=== PATIENT | female | born 1990 | race Caucasian/White ===

== ENCOUNTER 2018-01-18 13:20 | Outpatient (CLI) | payer MEDICAID ==
[~2018-01-18] VITALS: Ht 172.7 cm; Wt 70.8 kg
[~2018-01-18 13:20] MED LIST: ACHYD1T PO; IBP800T PO; PREN1TAB39 PO
[2018-01-18 14:14] VITALS: BP 108/56
[2018-01-18] MEDS ORDERED: D5 LR IV SOLUTION 1,000 ML IV SCH ×2 (14:15→16:15)
[2018-01-18] MEDS ORDERED: ONDANSETRON 4 MG/2 ML (SDV) Z0FRAN IVP ONE (14:15)
[2018-01-18 14:31] LABS: BASOPHILS % (AUTO) 0 % (0-10); EOSINOPHILS # (AUTO) 0.4 10^3/uL (0.0-0.3); EOSINOPHILS % (AUTO) 4 % (0-10); HEMATOCRIT 31 % (35-52); HEMOGLOBIN 10.9 G/DL (11.5-16.0); LYMPHOCYTES # (AUTO) 1.8 X 10^3 (1.0-4.0); LYMPHOCYTES % (AUTO) 16 % (12-44); MEAN CORPUSCULAR HEMOGLOBIN 33 PG (25-34); MEAN CORPUSCULAR HGB CONC 35 G/DL (32-36); MEAN CORPUSCULAR VOLUME 93 FL (80-99); MEAN PLATELET VOLUME 10.2 FL (7.4-10.4); MONOCYTES # (AUTO) 1.1 X 10^3 (0.0-1.0); MONOCYTES % (AUTO) 10 % (0-12); NEUTROPHILS # (AUTO) 8.4 X 10^3 (1.8-7.8); NEUTROPHILS % (AUTO) 71 % (42-75); PLATELET COUNT 225 10^3/uL (130-400); RED BLOOD COUNT 3.34 10^6/uL (4.35-5.85); RED CELL DISTRIBUTION WIDTH 12.2 % (10.0-14.5); WHITE BLOOD COUNT 11.8 10^3/uL (4.3-11.0)
[2018-01-18 14:53] LABS: ALANINE AMINOTRANSFERASE 6 U/L (0-55); ALBUMIN 3.5 GM/DL (3.2-4.5); ALKALINE PHOSPHATASE 68 U/L (40-136); BILIRUBIN,TOTAL 0.4 MG/DL (0.1-1.0); BUN/CREATININE RATIO 13; CALCIUM 8.9 MG/DL (8.5-10.1); CARBON DIOXIDE 20 MMOL/L (21-32); CHLORIDE 109 MMOL/L (98-107); CREATININE SERUM 0.64 MG/DL (0.60-1.30); GFR ESTIMATED > 60; GLUCOSE 81 MG/DL (70-105); POTASSIUM 3.8 MMOL/L (3.6-5.0); SODIUM 137 MMOL/L (135-145); TOTAL PROTEIN 6.3 GM/DL (6.4-8.2)
[2018-01-18 16:06] LABS: BILIRUBIN,URINE NEGATIVE (NEGATIVE); CLARITY,URINE CLEAR; COLOR,URINE YELLOW; GLUCOSE, URINE (UA) NEGATIVE (NEGATIVE); KETONES,URINE NEGATIVE (NEGATIVE); LEUKOCYTE ESTERASE ,URINE 1+ (NEGATIVE); NITRITE,URINE NEGATIVE (NEGATIVE); PH,URINE 6 (5-9); PROTEIN,URINE 2+ (NEGATIVE); UROBILINOGEN,URINE 1 MG/DL (NORMAL)
[2018-01-18 16:34] LABS: BACTERIA,URINE 0-2 /HPF
[2018-01-18] MEDS ORDERED: PREN-37 PO (18:19)
--- NOTE | 2018-01-19 15:43 | Physician Query-Final Dx ---
GIANA ORELLANA 01/19/18 1543: Clinic Account Progress/Dx Physician Query: Please give diagnosis Date of Service Jan 18, 2018 at 13:20 JAY PERES MD 01/20/18 0707: Clinic Account Progress/Dx DIAGNOSIS: Diagnosis false labor GIANA ORELLANA Jan 19, 2018 15:43 JAY PERES MD Jan 20, 2018 07:07
== END 2018-01-18 18:30 | disposition home or self-care (01) ==
LOC: WSo 13:20 → LDRP 13:20 → WSo 18:30
PROVIDERS: ATTEND Obstetrics & Gynecology
DX: O47.9 False labor, unspecified (principal)
CPT/HCPCS: 36415; 80053; 81000; 82570; 84156; 85025; 96360; 96361; 99213

== ENCOUNTER 2018-03-07 10:15 | Outpatient (CLI) | payer MEDICAID ==
[~2018-03-07] VITALS: Ht 172.7 cm; Wt 76.2 kg
[2018-03-07] VITALS (13 sets, daily range): BP systolic 101–142; BP diastolic 55–86
[~2018-03-07 10:15] MED LIST changes: +PREN-37 PO
[2018-03-07 10:55] LABS: BILIRUBIN,URINE NEGATIVE (NEGATIVE); CLARITY,URINE CLEAR; COLOR,URINE YELLOW; GLUCOSE, URINE (UA) NEGATIVE (NEGATIVE); KETONES,URINE NEGATIVE (NEGATIVE); LEUKOCYTE ESTERASE ,URINE 3+ (NEGATIVE); NITRITE,URINE NEGATIVE (NEGATIVE); PH,URINE 7 (5-9); PROTEIN,URINE 2+ (NEGATIVE); UROBILINOGEN,URINE NORMAL (NORMAL)
[2018-03-07 11:05] LABS: BACTERIA,URINE TRACE /HPF
[2018-03-07 11:51] LABS: BILIRUBIN,URINE NEGATIVE (NEGATIVE); CLARITY,URINE CLEAR; COLOR,URINE YELLOW; GLUCOSE, URINE (UA) NEGATIVE (NEGATIVE); KETONES,URINE NEGATIVE (NEGATIVE); LEUKOCYTE ESTERASE ,URINE NEGATIVE (NEGATIVE); NITRITE,URINE NEGATIVE (NEGATIVE); PH,URINE 7 (5-9); PROTEIN,URINE 1+ (NEGATIVE); UROBILINOGEN,URINE NORMAL (NORMAL)
[2018-03-07 12:02] LABS: BACTERIA,URINE NEGATIVE /HPF
[2018-03-07 13:39] LABS: BASOPHILS % (AUTO) 0 % (0-10); EOSINOPHILS # (AUTO) 0.1 10^3/uL (0.0-0.3); EOSINOPHILS % (AUTO) 1 % (0-10); HEMATOCRIT 31 % (35-52); HEMOGLOBIN 10.4 G/DL (11.5-16.0); LYMPHOCYTES # (AUTO) 1.8 X 10^3 (1.0-4.0); LYMPHOCYTES % (AUTO) 17 % (12-44); MEAN CORPUSCULAR HEMOGLOBIN 32 PG (25-34); MEAN CORPUSCULAR HGB CONC 34 G/DL (32-36); MEAN CORPUSCULAR VOLUME 94 FL (80-99); MEAN PLATELET VOLUME 10.2 FL (7.4-10.4); MONOCYTES % (AUTO) 9 % (0-12); NEUTROPHILS # (AUTO) 7.8 X 10^3 (1.8-7.8); NEUTROPHILS % (AUTO) 73 % (42-75); PLATELET COUNT 227 10^3/uL (130-400); RED BLOOD COUNT 3.29 10^6/uL (4.35-5.85); WHITE BLOOD COUNT 10.8 10^3/uL (4.3-11.0)
[2018-03-07 14:06] LABS: ALANINE AMINOTRANSFERASE 6 U/L (0-55); ALBUMIN 3.3 GM/DL (3.2-4.5); ALKALINE PHOSPHATASE 105 U/L (40-136); BILIRUBIN,TOTAL 0.4 MG/DL (0.1-1.0); BUN/CREATININE RATIO 8; CALCIUM 8.3 MG/DL (8.5-10.1); CARBON DIOXIDE 20 MMOL/L (21-32); CHLORIDE 110 MMOL/L (98-107); GFR ESTIMATED > 60; GLUCOSE 68 MG/DL (70-105); POTASSIUM 3.8 MMOL/L (3.6-5.0); SODIUM 136 MMOL/L (135-145); TOTAL PROTEIN 5.9 GM/DL (6.4-8.2); URIC ACID 4.8 MG/DL (2.6-7.2)
--- NOTE | 2018-03-09 13:59 | Physician Query-Final Dx ---
GIANA ORELLANA 03/09/18 1359: Clinic Account Progress/Dx Physician Query: Please give a diagnosis and the weeks of gestation thanks Date of Service Mar 07, 2018 at 10:15 ELIZABETH EDOUARD DO 03/23/18 1726: Clinic Account Progress/Dx DIAGNOSIS: Diagnosis complaint of rupture of membranes GIANA ORELLANA Mar 09, 2018 13:59 ELIZABETH EDOUARD DO Mar 23, 2018 17:26
== END 2018-03-07 15:40 | disposition home or self-care (01) ==
LOC: LDRP 10:15 → WSo 10:15
PROVIDERS: ATTEND Obstetrics & Gynecology
DX: O42.90 Premature rupture of membranes, unspecified as to length of time between rupture and onset of labor, unspecified weeks of gestation (principal)
CPT/HCPCS: 36415; 80053; 81000; 82570; 83615; 84156; 84550; 85025; 87088; 99214

== ENCOUNTER 2018-03-09 11:21 | Outpatient (CLI) | payer MEDICAID ==
[~2018-03-09] VITALS: Ht 172.7 cm; Wt 76.2 kg
[2018-03-09 13:25] LABS: BILIRUBIN,URINE NEGATIVE (NEGATIVE); CLARITY,URINE CLEAR; COLOR,URINE YELLOW; GLUCOSE, URINE (UA) NEGATIVE (NEGATIVE); KETONES,URINE NEGATIVE (NEGATIVE); LEUKOCYTE ESTERASE ,URINE 3+ (NEGATIVE); NITRITE,URINE NEGATIVE (NEGATIVE); PH,URINE 6.5 (5-9); PROTEIN,URINE 2+ (NEGATIVE); UROBILINOGEN,URINE 1 MG/DL (NORMAL)
[2018-03-09 13:39] LABS: BACTERIA,URINE MODERATE /HPF; YEAST,URINE FEW /HPF
--- NOTE | 2018-03-11 08:59 | Physician Query-Final Dx ---
GIANA ORELLANA 03/11/18 0859: Clinic Account Progress/Dx Physician Query: Please give diagnosis and include the weeks of gestation thank you Date of Service Mar 09, 2018 at 11:21 GRISEL HERRERA DO 03/14/18 0911: Clinic Account Progress/Dx DIAGNOSIS: Diagnosis 37 week IUP Uterine contractions GIANA ORELLANA Mar 11, 2018 08:59 GRISEL HERRERA DO Mar 14, 2018 09:11
== END 2018-03-09 15:05 | disposition home or self-care (01) ==
LOC: LDRP 11:21 → WSo 11:21
PROVIDERS: ATTEND Obstetrics & Gynecology
DX: O47.1 False labor at or after 37 completed weeks of gestation (principal); Z3A.37 37 weeks gestation of pregnancy
CPT/HCPCS: 81000; 87088; 99214

== ENCOUNTER 2018-03-16 12:20 | Inpatient (IN) | payer MEDICAID ==
[2018-03-16] VITALS (50 sets, daily range): BP systolic 106–185; BP diastolic 56–86
[~2018-03-16] VITALS: Ht 172.7 cm; Wt 74.8 kg
[2018-03-16] MEDS ORDERED: MINERAL OIL CONCENTRATE 99.9% 15 ML UDC TOP PRN (13:00)
[2018-03-16] MEDS: D5 LR IV SOLUTION 1,000 ML IV SCH ×2 (13:13→19:00)
[2018-03-16 13:43] LABS: BASOPHILS % (AUTO) 0 % (0-10); EOSINOPHILS # (AUTO) 0.2 10^3/uL (0.0-0.3); EOSINOPHILS % (AUTO) 2 % (0-10); HEMATOCRIT 34 % (35-52); HEMOGLOBIN 11.4 G/DL (11.5-16.0); LYMPHOCYTES # (AUTO) 2.1 X 10^3 (1.0-4.0); LYMPHOCYTES % (AUTO) 20 % (12-44); MEAN CORPUSCULAR HEMOGLOBIN 31 PG (25-34); MEAN CORPUSCULAR HGB CONC 34 G/DL (32-36); MEAN CORPUSCULAR VOLUME 93 FL (80-99); MEAN PLATELET VOLUME 11.2 FL (7.4-10.4); MONOCYTES # (AUTO) 1.1 X 10^3 (0.0-1.0); MONOCYTES % (AUTO) 11 % (0-12); NEUTROPHILS # (AUTO) 7.3 X 10^3 (1.8-7.8); NEUTROPHILS % (AUTO) 68 % (42-75); PLATELET COUNT 256 10^3/uL (130-400); RED BLOOD COUNT 3.63 10^6/uL (4.35-5.85); RED CELL DISTRIBUTION WIDTH 12.8 % (10.0-14.5); WHITE BLOOD COUNT 10.8 10^3/uL (4.3-11.0)
[2018-03-16] MEDS ORDERED: CATHETER FLUSH 10 ML SYR IV SCH (14:00)
[2018-03-16] MEDS ORDERED: SUFENTA 0.6MCG/ML BUPIVA 0.125 100 ML ONE (14:18)
[2018-03-16] MEDS ORDERED: BUPIVACAINE 0.25% 30 ML (SENSORCAINE) VIAL ONE (14:31)
[2018-03-16] MEDS ORDERED: fentaNYL INJECTION 100 MCG/2 ML AMP ONE (14:32)
[2018-03-16] MEDS ORDERED: D5 LR IV SOLUTION 1,000 ML IV SCH (15:03)
[2018-03-16] MEDS ORDERED: OXYTOCIN/NORMAL SALINE 500 ML IV SCH ×2 (15:03)
[2018-03-16] MEDS ORDERED: LACTATED RINGERS 1,000 ML IV ONE ×2 (15:06)
--- NOTE | 2018-03-16 15:09 | History & Physical ---
History and Physical Date Seen by Provider: Mar 16, 2018 Time Seen by Provider: 15:06 This patient is a 27-year-old white female with an EDC of 9 1418 putting her at 38-5/7 weeks gestation. She presented with complaint of regular painful contractions. She complains of persistent ongoing contractions for over week and a half. Determined that she has had a prolonged latent labor. She has changed her cervix now 3-1/2 cm where she was 3 cm yesterday. It does appear that she is entering active labor. She denies rupture membranes or bleeding. She had GBS culture after 35 weeks gestation was negative. Allergies are to sulfa which causes nausea and vomiting Medications are vitamins and Zantac Past medical surgical and obstetric histories are per the antepartum record HEENT exam is normal Neck is supple no lymphadenopathy no thyromegaly Abdomen is gravid soft nontender nondistended Extreme show clubbing cyanosis. There is no Homans sign. Pelvic exam per the nurse shows a cervix 3/2 gently dilated 70-80 percent effaced and 0-1 station vertex presentation with intact bag Laboratory Tests 03/16/18 13:10 Assessment and plan 38-5/7 weeks' gestation in early labor with a prolonged latent labor. Patient is admitted now for labor management. Epidural was allowed we will perform amniotomy to augment her labor. She does progress adequately and we will add Pitocin. We expect a vaginal delivery. 38-5/7 weeks' gestation in labor Allergies and Home Medications Allergies Coded Allergies: No Known Drug Allergies (Unverified , 12/21/11) Home Medications Vit/Iron Fumarate/FA 1 Each Tablet, 1 EACH PO DAILY, (Reported) Patient Home Medication List Home Medication List Reviewed: Yes JAY PERES MD Mar 16, 2018 3:09 pm
[2018-03-16] MEDS ORDERED: IBUP-1780 PO (15:11)
[2018-03-16] MEDS ORDERED: DOCU100C37 PO (15:11)
[2018-03-16] MEDS ORDERED: OXYC-471 PO (15:11)
--- NOTE | 2018-03-16 15:11 | Discharge Instructions ---
Discharge Instructions Discharge Medications New, Converted or Re-Newed RX: RX on Chart Patient Instructions Patient Instructions: As directed Return to The Hospital For: As directed Activity & Diet Discharge Diet: No Restrictions Activity as Tolerated: No Orders-Post D/C & Referrals Follow Up Appt: Call to make follow up appt. for patient in 4 weeks. Activity Per routine post vaginal delivery instructions. Diet as tolerated Patient may shower or tub bathe as desired. JAY PERES MD Mar 16, 2018 3:11 pm
[2018-03-16] MEDS ORDERED: ONDANSETRON 4 MG/2 ML (SDV) Z0FRAN IVP PRN (15:15)
[2018-03-16] MEDS ORDERED: KETOROLAC 30 MG/ML VIAL IV SCH (15:15)
[2018-03-16] MEDS ORDERED: MEASLES,MUMPS,RUBELLA 1 EA INJ SC ONE (15:15)
[2018-03-16] MEDS ORDERED: ONDANSETRON 4 MG/2 ML (SDV) Z0FRAN IV PRN (15:15)
[2018-03-16] MEDS ORDERED: BENZOCAINE/MENTHOL (DERMOPLAST) 56 ML CAN TP PRN (15:15)
[2018-03-16] MEDS ORDERED: TETANUS,DIPTH,PERTUSS P/F (BOOSTRIX) 0.5 ML VIAL IM ONE (15:15)
[2018-03-16] MEDS ORDERED: EPIDURAL (SUFENTA 0.6MCG/ML BUPIVA 0.125%) 100 ML BAG EPI PRN (15:15)
[2018-03-16] MEDS ORDERED: oxyCODONE/APAP 5/325MG (PERCOCET 5) TABLET PO PRN (15:15)
[2018-03-16] MEDS ORDERED: NALOXONE 0.4 MG/ML 1 ML (NARCAN) VIAL IV PRN (15:15)
--- OUTSIDE RECORDS SUMMARY | 2018-03-16 15:21 | XMS REPORT ---
Author Author MARLENE MCNAIR Organization [employer] Address Unknown Phone Unavailable Care Team Providers Care Veterinary Meat Inspector Name Role Phone MARLENE MCNAIR CP Unavailable Allergies, Adverse Reactions, Alerts Substance Reaction Event Type Sulfamethoxazole-Trimethoprim vomiting Drug Allergy Problems Problem Type Condition Code Onset Dates Condition Status Assessment Pharyngitis J02.9 Active Medications Medication Code System Code Instructions Start Date End Date Status Dosage Keflex [facility] [address]-22 500 MG Orally 3 times a day Apr 24, 2015 May 01, 2015 1 capsule Depo-Provera [facility] [address]-29 150 MG/ML Intramuscular 1 ml PredniSONE [facility] [address]-80 10 MG Orally Twice a day Apr 24, 2015Apr 1 tablet with food or milk Zoloft [facility] [address]-67 50 MG Orally Once a day 1 tablet Sudafed 12 Hour [facility] [address]-46 120 MG Orally every 12 hrs 1 tablet as needed Procedures Procedure Coding System Code Date Office Visit, New Pt., Level 2 CPT-4 73501 Apr 24, 2015 Vital Signs Date/Time: Apr 24, 2015 Temperature 99.5 F Weight 121.8 lbs Height 67 in BMI 19.07 Index Blood Pressure Diastolic 76 mmHg Blood Pressure Systolic 122 mmHg Cardiac Monitoring Heart Rate 84 bpm Results No Known Results Summary Purpose [employer] Submission
--- OUTSIDE RECORDS SUMMARY | 2018-03-16 15:21 | XMS REPORT ---
Author Author MARLENE MCNAIR Organization [facility] Address [address] [place] [address] Care Team Providers Care Meat Carrier Name Role Phone MARLENE MCNAIR Unavailable PROBLEMS Unknown Problems ALLERGIES No Information ENCOUNTERS Encounter Location Date Diagnosis [facility] [id number], [place] [address] 16 Apr, 2017 [facility] [address] [id number], [place] [address] 13 Apr, 2017 Sore throat J02.9 and Pharyngitis, unspecified etiology J02.9 [facility] [address] [id number], [place] [address] 14 Apr, 2015 Pharyngitis J02.9 IMMUNIZATIONS No Known Immunizations SOCIAL HISTORY Never Assessed REASON FOR VISIT triage - CBowmanRN PLAN OF CARE VITAL SIGNS MEDICATIONS Unknown Medications RESULTS No Results PROCEDURES No Known procedures INSTRUCTIONS MEDICATIONS ADMINISTERED No Known Medications MEDICAL (GENERAL) HISTORY Type Description Date Medical History Anxiety Medical History Depression Medical History Seasonal allergies Surgical History [place] teeth extraction Surgical History dilatation and curettage
--- OUTSIDE RECORDS SUMMARY | 2018-03-16 15:21 | XMS REPORT | Continuity of Care Document ---
Author Author Formerly [facility] Address Unknown Phone Unavailable Allergies Active Description Code Type Severity Reaction Onset Reported/Identified Relationship to Patient Clinical Status Yes No Known Drug Allergies [id number] Drug Allergy Unknown N/A 12/21/2011 Medications There is no data. Problems Date Dx Coded Attending Type Code Diagnosis Diagnosed By 01/18/2018 LARISA WILEY, JAY Velázquez Ot O47.9 FALSE LABOR, UNSPECIFIED Procedures There is no data. Results Test Result Range Complete blood count (CBC) with automated white blood cell (WBC) differential - 01/18/18 14:25 Blood leukocytes automated count (number/volume) 11.8 10*3/uL 4.3-11.0 Blood erythrocytes automated count (number/volume) 3.34 10*6/uL 4.35-5.85 Venous blood hemoglobin measurement (mass/volume) 10.9 g/dL 11.5-16.0 Blood hematocrit (volume fraction) 31 % 35-52 Automated erythrocyte mean corpuscular volume 93 [foz_us] 80-99 Automated erythrocyte mean corpuscular hemoglobin (mass per erythrocyte) 33 pg 25-34 Automated erythrocyte mean corpuscular hemoglobin concentration measurement ( mass/volume) 35 g/dL 32-36 Automated erythrocyte distribution width ratio 12.2 % 10.0-14.5 Automated blood platelet count (count/volume) 225 10*3/uL 130-400 Automated blood platelet mean volume measurement 10.2 [foz_us] 7.4-10.4 Automated blood neutrophils/100 leukocytes 71 % 42-75 Automated blood lymphocytes/100 leukocytes 16 % 12-44 Blood monocytes/100 leukocytes 10 % 0-12 Automated blood eosinophils/100 leukocytes 4 % 0-10 Automated blood basophils/100 leukocytes 0 % 0-10 Blood neutrophils automated count (number/volume) 8.4 10*3 1.8-7.8 Blood lymphocytes automated count (number/volume) 1.8 10*3 1.0-4.0 Blood monocytes automated count (number/volume) 1.1 10*3 0.0-1.0 Automated eosinophil count 0.4 10*3/uL 0.0-0.3 Automated blood basophil count (count/volume) 0.0 10*3/uL 0.0-0.1 Comprehensive metabolic panel - 01/18/18 14:25 Serum or plasma sodium measurement (moles/volume) 137 mmol/L 135-145 Serum or plasma potassium measurement (moles/volume) 3.8 mmol/L 3.6-5.0 Serum or plasma chloride measurement (moles/volume) 109 mmol/L 98-107 Carbon dioxide 20 mmol/L 21-32 Serum or plasma anion gap determination (moles/volume) 8 mmol/L 5-14 Serum or plasma urea nitrogen measurement (mass/volume) 8 mg/dL 7-18 Serum or plasma creatinine measurement (mass/volume) 0.64 mg/dL 0.60-1.30 Serum or plasma urea nitrogen/creatinine mass ratio 13 NRG Serum or plasma creatinine measurement with calculation of estimated glomerular filtration rate > NRG Serum or plasma glucose measurement (mass/volume) 81 mg/dL 70-105 Serum or plasma calcium measurement (mass/volume) 8.9 mg/dL 8.5-10.1 Serum or plasma total bilirubin measurement (mass/volume) 0.4 mg/dL 0.1-1.0 Serum or plasma alkaline phosphatase measurement (enzymatic activity/volume) 68 U/L 40-136 Serum or plasma aspartate aminotransferase measurement (enzymatic activity/ volume) 12 U/L 5-34 Serum or plasma alanine aminotransferase measurement (enzymatic activity/volume ) 6 U/L 0-55 Serum or plasma protein measurement (mass/volume) 6.3 g/dL 6.4-8.2 Serum or plasma albumin measurement (mass/volume) 3.5 g/dL 3.2-4.5 Complete urinalysis with reflex to culture - 01/18/18 14:25 Urine color determination YELLOW NRG Urine clarity determination CLEAR NRG Urine pH measurement by test strip 6 5-9 Specific gravity of urine by test strip 1.020 1.016- 1.022 Urine protein assay by test strip, semi-quantitative 2+ NEGATIVE Urine glucose detection by automated test strip NEGATIVE NEGATIVE Erythrocytes detection in urine sediment by light microscopy NEGATIVE NEGATIVE Urine ketones detection by automated test strip NEGATIVE NEGATIVE Urine nitrite detection by test strip NEGATIVE NEGATIVE Urine total bilirubin detection by test strip NEGATIVE NEGATIVE Urine urobilinogen measurement by automated test strip (mass/volume) 1 mg/dL NORMAL Urine leukocyte esterase detection by dipstick 1+ NEGATIVE Automated urine sediment erythrocyte count by microscopy (number/high power field) NONE NRG Automated urine sediment leukocyte count by microscopy (number/high power field ) NONE NRG Bacteria detection in urine sediment by light microscopy 0-2 NRG Crystals detection in urine sediment by light microscopy NONE NRG Casts detection in urine sediment by light microscopy NONE NRG Mucus detection in urine sediment by light microscopy SMALL NRG Complete urinalysis with reflex to culture NO NRG Urine protein/creatinine mass ratio - 01/18/18 14:25 Urine protein measurement (mass/volume) 42 mg/dL 6-12 Urine creatinine measurement (mass/volume) 214 mg/dL 30- 125 Urine protein/creatinine mass ratio 0.20 NRG Encounters ACCT No. Visit Date/Time Discharge Status Pt. Type Provider Facility Loc./Unit Complaint [id number] 04/23/2017 13:20:00 04/23/2017 23:59:59 CLS Outpatient [facility] [id number] 01/18/2018 13:20:00 01/18/2018 18:30:00 DIS Outpatient LARISA WILEY, JAY Galindo [facility] NAUSEA, VOMITING, DIARRHEA
[2018-03-16] MEDS ORDERED: LIDOCAINE/EPI 2% 1:200,00 (XYLOCAINE) 10 ML VIAL ONE (16:42)
--- NOTE | 2018-03-17 00:50 | OPERATIVE REPORT ---
DATE OF SERVICE: 03/16/2018 DELIVERY NOTE The patient delivered by term spontaneous vaginal delivery a viable male with Apgars of 9 and 9 at 1 and 5 minutes respectively, weight of 6 pounds 11 ounces, time of 21:35 and a cord blood pH IS 7.34. The delivery was accomplished over an intact perineum under epidural analgesia. The patient delivered with less than 3 pushes total. The infant was bulb suctioned on delivery of the head and again on completion of delivery. The infant was quickly pink moved, all extremities, had excellent tone and reflexes and a lusty cry. The heart rate pattern had been somewhat suppressed with contractions for the last 10 to 15 minutes of the labor as the patient went from 5 to 6 cm to complete in less than 30 minutes. Cord blood pH was wnl. The was bulb suctioned on delivery of the head and again on completion of delivery. Umbilical cord was doubly clamped, father cut the cord. Baby was passed to mom' s abdomen. The placenta delivered promptly spontaneously Silva, it was a battledore placenta with a 3-vessel cord with a fairly minimal velamentous insertion of the vessels. The cervix, vagina, rectum and perineum were examined and found intact, except for a right periurethral first-degree laceration and a right internal labia minora first-degree laceration, both of which were repaired with a single suture of 3-0 Vicryl in a running locked fashion to good hemostasis and good reapproximation. The patient tolerated the repair under her epidural. Sponge and needle counts were correct on completion of the delivery and the repair. Estimated blood loss was around 200 mL. The patient remained in the LDR for recovery. The baby remained with the mom. Job ID: [id number] DocumentID: [id number] Dictated Date: 03/16/2018 21:54:01 Railroad Dispatcher Date: 03/17/2018 00:49:34 Dictated By: JAY PERES MD MTDD
[2018-03-17] MEDS ORDERED: ONDANSETRON 8 MG (ZOFRAN) ORAL DISSOLVE TAB ONE (03:48)
[2018-03-17 03:50] VITALS: BP 112/71
[2018-03-17] MEDS ORDERED: IBUPROFEN 800 MG (MOTRIN) TAB PO ONE (06:00)
[2018-03-17] MEDS: IBUPROFEN 800 MG (MOTRIN) TAB PO SCH ×4 (06:09→23:32)
--- NOTE | 2018-03-17 07:41 | Progress Note-Standard ---
Standard Progress Note Progress Notes/Assess & Plan Date Seen by Provider: Mar 17, 2018 Time Seen by Provider: 07:40 Progress/Assessment & Plan This patient is without complaint. She is ambulating, voiding, tolerating oral intake well, has good pain control. Patient denies chest pain, denies shortness breath, denies nausea vomiting, denies headache. Vital Signs 03/16/18 03/17/18 21:35 03:50 Temp 97.8 Pulse 58 Resp 18 B/P (MAP) 112/71 (85) Pulse Ox 99 O2 Delivery Room Air O2 Flow Rate 15.00 Vital signs are stable. Patient is afebrile. Fundus is firm below the umbilicus and nontender. Extremities show no clubbing cyanosis. There is no Homans sign. Assessment and plan day number 1 status post term spontaneous vaginal delivery doing well. Plan is for routine convalescence care today and discharge home tomorrow JAY PERES MD Mar 17, 2018 7:41 am
--- NOTE | 2018-03-17 07:57 | Anesthesia-Regional Post-Op ---
Regional Patient Condition Mental Status: Alert, Oriented x3 Circulation: Same as Pre-Op Headache: Absent Sensation: Full Recovery Motor Block: Absent Post Op Complications Complications None Follow Up Care/Instructions Patient Instructions None needed. Anesthesia/Patient Condition Patient is doing well, no complaints, stable vital signs, no apparent adverse anesthesia problems. No complications reported per nursing. D/C home per [facility] Criteria: Yes JORDON DIAZ CRNA Mar 17, 2018 07:56
[2018-03-17] MEDS: DOCUSATE SODIUM 100 MG (COLACE) CAP PO SCH ×2 (08:30→23:32)
[2018-03-17 08:55] VITALS: BP 115/79
[2018-03-17 13:00] VITALS: BP 112/70
[2018-03-17 16:45] VITALS: BP 141/83
[2018-03-17] MEDS ORDERED: MEASLES,MUMPS,RUBELLA 1 EA INJ ONE (18:12)
[2018-03-17] MEDS ORDERED: TETANUS,DIPTH,PERTUSS P/F (BOOSTRIX) 0.5 ML VIAL IM ONE (18:12)
[2018-03-17 19:30] VITALS: BP 116/73
[2018-03-17 23:40] VITALS: BP 106/66
[2018-03-18 05:55] VITALS: BP 103/66
[2018-03-18] MEDS: IBUPROFEN 800 MG (MOTRIN) TAB PO SCH (05:58)
--- NOTE | 2018-03-18 07:41 | Progress Note-Standard ---
Standard Progress Note Progress Notes/Assess & Plan Date Seen by Provider: Mar 18, 2018 Time Seen by Provider: 07:40 Progress/Assessment & Plan This patient is without complaint. She is ambulating, voiding, tolerating oral intake well, has good pain control. Patient denies chest pain, denies shortness breath, denies nausea vomiting, denies headache. Vital Signs 03/16/18 03/17/18 21:35 03:50 Temp 97.8 Pulse 58 Resp 18 B/P (MAP) 112/71 (85) Pulse Ox 99 O2 Delivery Room Air O2 Flow Rate 15.00 Vital signs are stable. Patient is afebrile. Fundus is firm below the umbilicus and nontender. Extremities show no clubbing cyanosis. There is no Homans sign. Assessment and plan day number 1 status post term spontaneous vaginal delivery doing well. Plan is for routine convalescence care today and discharge home tomorrow March 18, 2018 Patient is without complaint. She is ambulating, voiding, tolerating oral intake well has good pain control and is requesting discharge home. Vital Signs 03/16/18 03/17/18 03/18/18 21:35 16:45 05:55 Temp 97.5 Pulse 66 Resp 18 B/P (MAP) 103/66 (78) Pulse Ox 99 O2 Delivery Room Air O2 Flow Rate 15.00 Vital signs are stable. Patient is afebrile. Fundus is firm below the umbilicus and nontender. Extremities show no clubbing cyanosis. There is no Homans sign. There is minimal pretibial pitting edema. Assessment and plan day number 2 status post term spontaneous vaginal delivery at 38-5/7 weeks' gestation. Patient is doing well and will be discharged home with follow-up Final Diagnosis Term spontaneous vaginal delivery JAY PERES MD Mar 18, 2018 7:41 am
[2018-03-18 09:00] VITALS: BP 105/70
== END 2018-03-18 21:02 | disposition home or self-care (01) | DRG 775 ==
LOC: LDRP 12:20 → WSo 12:20 → LDRP 12:45
PROVIDERS: ADMIT Obstetrics & Gynecology; ATTEND Obstetrics & Gynecology
PROC: 10E0XZZ Delivery of Products of Conception, External Approach (ICD-10-PCS; principal; 2018-03-16)
PROC: 0HQ9XZZ Repair Perineum Skin, External Approach (ICD-10-PCS; 2018-03-16)
PROC: 0UQMXZZ Repair Vulva, External Approach (ICD-10-PCS; 2018-03-16)
DX: O63.0 Prolonged first stage (of labor) (principal); O43.193 Other malformation of placenta, third trimester; O70.0 First degree perineal laceration during delivery; O71.82 Other specified trauma to perineum and vulva; Z37.0 Single live birth; Z3A.38 38 weeks gestation of pregnancy; Z23 Encounter for immunization
CPT/HCPCS: 36415; 85025; 86850; 86900; 86901; 88307; 90707; 90715; 99212

== ENCOUNTER 2019-07-11 06:15 | Outpatient (CLI) | payer MEDICAID ==
[~2019-07-11] VITALS: Ht 172 cm; Wt 59.0 kg
[~2019-07-11 06:15] MED LIST changes: +DOCU100C37 PO; +IBUP-1780 PO; +OXYC-471 PO
[2019-07-11] MEDS ORDERED: PSEU60TA84 PO (11:10)
[2019-07-11] MEDS ORDERED: MEDR150D8 IM (11:10)
[2019-07-11] MEDS ORDERED: SERT50TA2 PO (11:10)
[2019-07-14] MEDS ORDERED: IBUP-1780 PO (12:20)
== END 2019-07-11 11:50 | disposition home or self-care (01) ==
LOC: PREOP 06:15
PROVIDERS: ATTEND Obstetrics & Gynecology
DX: Z01.818 Encounter for other preprocedural examination (principal)